=== PATIENT | male | born 1955 | race Caucasian/White ===

== ENCOUNTER → 2016-11-18 | Outpatient (CLI) | payer OTHER ==
--- NOTE | 2016-11-18 09:27 | XR ---
EXAMINATION TYPE: XR cervical spine comp DATE OF EXAM: 11/18/2016 9:21 AM TECHNIQUE: Frontal, lateral, oblique, and open mouth view of the cervical spine are obtained. HISTORY: Chronic neck pain, history of multiple prior surgeries COMPARISON: None FINDINGS: The cervical spine is visualized in its entirety from C1 thru the top of T1 level, there i s straightening of cervical spine without evidence of acute fracture or dislocation. The pre-vertebr al soft tissue appears within normal limits. The C1-C2 articulation is within normal limits on the o pen mouth view. There is anterior fusion plate with high dense disc spacers at C3-C5 level. There is metallic cage at C5-C6 level anteriorly. There is ossific fusion at C6-C7 level. There is moderate disc space narrowi ng at C7-T1 level. Alignment is satisfactory. The oblique images are within normal limits. Overlying soft tissue is unremarkable. IMPRESSION: Postsurgical changes from C3-C5 level and C5-C6 levels. Ossific fusion C6-C7 level is see n. Alignment is maintained.
== END | disposition home or self-care (01) ==
LOC: RADXRMAIN 09:03
PROVIDERS: ATTEND Pediatrics
DX: M54.2 Cervicalgia (principal); Z98.1 Arthrodesis status
CPT/HCPCS: 72050

== ENCOUNTER → 2016-12-24 | Outpatient (CLI) | payer OTHER ==
--- NOTE | 2016-12-24 16:29 | XR ---
EXAMINATION TYPE: XR shoulder complete RT DATE OF EXAM ORDERED: 12/24/2016 3:53 PM HISTORY: M25.511 R shoulder pain. COMPARISON: None. FINDINGS: No fracture, dislocation or other acute osseous lesion is seen. Note is made of mild hyper trophic changes in the right AC joint. IMPRESSION: 1. NO ACUTE OSSEOUS LESION. 2. MILD HYPERTROPHIC CHANGE, RIGHT AC JOINT.
== END | disposition home or self-care (01) ==
LOC: RADXRMAIN 15:36
PROVIDERS: ATTEND Pediatrics
DX: M89.311 Hypertrophy of bone, right shoulder (principal); M25.511 Pain in right shoulder

== ENCOUNTER → 2017-03-08 | Outpatient (CLI) | payer OTHER ==
--- NOTE | 2017-03-08 11:59 | XR ---
EXAMINATION TYPE: XR lumbar spine 2 or 3V DATE OF EXAM: 03/08/2017 10:42 AM COMPARISON: NONE HISTORY: Back pain TECHNIQUE: 3 view lumbar spine FINDINGS: There 5 lumbar-type vertebral bodies. The pedicles are intact. Vertebral body heights appea r preserved. Disc heights are preserved. IMPRESSION: 1. No acute changes lumbar spine. 2. Consider MRI for additional evaluation
== END | disposition home or self-care (01) ==
LOC: RADXRMAIN 10:17
PROVIDERS: ATTEND Pediatrics
DX: M54.9 Dorsalgia, unspecified (principal)
CPT/HCPCS: 72100

== ENCOUNTER → 2017-03-30 | Outpatient (CLI) | payer OTHER ==
--- NOTE | 2017-03-30 12:53 | CT ---
EXAMINATION TYPE: CT abdomen pelvis wo/w con DATE OF EXAM: 03/30/2017 COMPARISON: NONE HISTORY: Neoplasm of uncertain behavior CT DLP: 2433 mGycm, Automated Exposure Control for Dose Reduction was Utilized. CONTRAST: CT scan of the abdomen and pelvis is performed with oral and without and with IV Contrast, patient in jected with 100 ml mL of Omnipaque 300. FINDINGS: LUNG BASES: There is 2 mm calcified nodule left lung base on axial image 10 series 7. LIVER/GB: No significant abnormality is appreciated. PANCREAS: No significant abnormality is seen. SPLEEN: No significant abnormality is seen. ADRENALS: There is 2.1 x 1.1 cm left adrenal mass anterior limb, Hounsfield units average -[address], findings are consistent with lipid rich adenoma. KIDNEYS: No renal calculi are evident bilaterally. There is symmetric cortical medullary uptake and excretion from both kidneys. There is exophytic heterogeneous lobulated hypodense felt nonenhancing e xophytic mass from posterior aspect lower pole left kidney with Hounsfield units averaging between 10 and 20, measuring approximately 6.5 cm AP diameter on axial image 36 x 5.5 cm transversely by 8 cm c raniocaudal dimension on sagittal image 61. Cystic neoplasm is suspected. Lesion encroaches upon infe rior central renal fatty sinus, this is seen best on sagittal image 60 and coronal image 66. Suspect a few small parapelvic cyst centrally in left kidney. BOWEL: Diverticula in left and sigmoid colon are present. No CT evidence for acute diverticulitis. Or al contrast does not reach colonic level. There is no suspicious small or large bowel dilatation seen . PROSTATE/SEMINAL VESICLES: Some central zone calcifications are seen in normal size gland. LYMPH NODES: No greater than 1cm abdominal or pelvic lymph nodes are appreciated. OSSEOUS STRUCTURES: Bilateral pars defects L5 level. No significant spondylolisthesis. Mild disc spac e narrowing L5-S1 level is present. OTHER: No significant additional abnormality is seen. IMPRESSION: 1. Complex exophytic cystic lesion lower pole level left kidney in which cystic renal cell carcinoma is suspected. Surgical follow-up advised.
== END | disposition home or self-care (01) ==
LOC: RADCTMAIN 10:06
PROVIDERS: ATTEND Urology
DX: N28.1 Cyst of kidney, acquired (principal)
CPT/HCPCS: 74178; Q9967 ×2

== ENCOUNTER → 2017-05-25 | Outpatient (CLI) | payer OTHER ==
[2017-05-25 10:21] LABS: EKG EKG PERFORMED
--- NOTE | 2017-05-25 10:42 | XR ---
EXAMINATION TYPE: XR chest 2V DATE OF EXAM: 05/25/2017 COMPARISON: Correlation CT 03/30/2017 HISTORY: 62-year-old male malignant neoplasm of the left kidney, presurgical evaluation TECHNIQUE: Axial and lateral views FINDINGS: The cardiomediastinal silhouette, aorta, and pulmonary vasculature are within normal limits. Focal op acity along the cardiac apex corresponds to epicardial fat pad when correlating with prior CT. No con solidation or pleural effusion. IMPRESSION: No acute cardiopulmonary process.
[2017-05-25 10:56] LABS: Appearance,Urine Clear (Clear); Basophils % (A) 0 %; Bilirubin,Urine Negative (Negative); CH 31.3; CHCM 33.4; Eosinophils # (A) 0.1 k/uL (0-0.7); Eosinophils % (A) 1 %; Glucose,Urine (UA) Negative (Negative); HCT 55.3 % (39.0-53.0); HDW 2.43; HGB 18.5 gm/dL (13.0-17.5); Ketones,Urine Negative (Negative); Leukocyte Esterase,Urine Negative (Negative); Luc # (Auto) 0.21; Luc % (Auto) 3; Lymphocytes # (A) 2.1 k/uL (1.0-4.8); Lymphocytes % (A) 28 %; MCH 31.6 pg (25.0-35.0); MCHC 33.5 g/dL (31.0-37.0); MCV 94.2 fL (80.0-100.0); Monocytes # (A) 0.5 k/uL (0-1.0); Monocytes % (A) 7 %; Neutrophils # (A) 4.4 k/uL (1.3-7.7); Neutrophils % (A) 61 %; Nitrite,Urine Negative (Negative); Protein,Urine Negative (Negative); RBC 5.87 m/uL (4.30-5.90); RDW 13.5 % (11.5-15.5); Specific Gravity,Urine 1.013 (1.001-1.035); UA Billing (MACRO vs. MICRO) CHEM; Urobilinogen,Urine <2.0 mg/dL (<2.0); WBC 7.3 k/uL (3.8-10.6); WBC (Perox) 7.27
[2017-05-25 11:16] LABS: ALT 37 U/L (21-72); AST 25 U/L (17-59); Alkaline Phosphatase 94 U/L (38-126); Anion Gap 11 mmol/L; Blood Urea Nitrogen 18 mg/dL (9-20); Calcium 9.6 mg/dL (8.4-10.2); Carbon Dioxide 23 mmol/L (22-30); Chloride 106 mmol/L (98-107); Glucose 98 mg/dL (74-99); Non-African American GFR(MDRD) >60 (>60 ml/min/1.73 sqM); Potassium 4.9 mmol/L (3.5-5.1); Sodium 140 mmol/L (137-145); Total Bilirubin 0.8 mg/dL (0.2-1.3); Total Protein 7.3 g/dL (6.3-8.2)
== END | disposition home or self-care (01) ==
LOC: RADXRMAIN 09:47
PROVIDERS: ATTEND Urology
DX: Z01.818 Encounter for other preprocedural examination (principal); C64.2 Malignant neoplasm of left kidney, except renal pelvis; R53.83 Other fatigue; R06.02 Shortness of breath; R35.0 Frequency of micturition; Z01.810 Encounter for preprocedural cardiovascular examination
CPT/HCPCS: 36415; 71020; 80053; 81003; 85025; 93005

== ENCOUNTER 2017-06-01 05:46 | Inpatient (IN) | payer OTHER ==
[2017-05-25 08:38] VITALS: BMI 30.5
[~2017-06-01 05:46] MED LIST: Pre Op ABX Message 1 EACH MISC MISCELLANE ONE
[2017-06-01] MEDS: LACTATED RINGERS 1,000 ML IV SCH (06:53)
[2017-06-01] MEDS ORDERED: LIDOCAINE 1% 20 ML VIAL (10MG/ML) FOR IV START INTRADERMA ONE (06:54)
[2017-06-01] MEDS ORDERED: ROCURONIUM BROMIDE 10 MG/ML 10 ML VIAL IV ONE (07:41)
[2017-06-01] MEDS ORDERED: fentaNYL (PF) 50 MCG/ML 2 ML AMP ONE (07:41)
[2017-06-01] MEDS ORDERED: GLYCOPYRROLATE 0.2 MG/ML 2 ML VIAL ONE (07:41)
[2017-06-01] MEDS ORDERED: PROPOFOL 10 MG/ML 20 ML VIAL IV ONE (07:41)
[2017-06-01] MEDS ORDERED: LIDOCAINE 1% INJ 10MG/ML (20 ML MDV) ONE (07:41)
[2017-06-01] MEDS ORDERED: SUCCINYLCHOLINE CHLORIDE 100 MG/5 ML SYR IV ONE (07:41)
[2017-06-01] MEDS ORDERED: ePHEDrine SULFATE/0.9% NACL/PF 50 MG/5 ML SYRINGE IV ONE (07:41)
[2017-06-01] MEDS ORDERED: NEOSTIGMINE 1 MG/ML 10 ML VIAL ONE (07:41)
[2017-06-01] MEDS ORDERED: NALOXONE 0.4 MG/ML 1 ML VIAL IV PRN (08:06)
[2017-06-01] MEDS ORDERED: BUPIVACAINE (PF) 0.5% 50 ML, HYDROMORPHONE (PF) 5 MG in SODIUM CHLORIDE 0.9% 200 ML EPIDURAL PRN (08:06)
[2017-06-01] MEDS ORDERED: LACTATED RINGERS 1,000 ML IV ONE ×2 (08:36)
[2017-06-01] MEDS ORDERED: CYCLOBENZAPRINE 10 MG TAB PO PRN (10:09)
--- NOTE | 2017-06-01 10:16 | P.OP ---
Date of Procedure: 06/01/17 Preoperative Diagnosis: Class III left renal cyst possible cystic carcinoma of the kidney Postoperative Diagnosis: Same Procedure(s) Performed: Left radical nephrectomy Implants: Anesthesia: GETA, epidural Surgeon: Noah Galvan Tanker Driver #1: Osbaldo Priec Estimated Blood Loss (ml): 100 Pathology: other (Left kidney) Condition: stable Disposition: PACU Indications for Procedure: The patient is a 62-year-old gentleman with a very atypical invasive renal cysts , class III Bosniak rule out cystic carcinoma the patient was given alternatives of treatment options. He has chosen an open radical nephrectomy as the tumor is too deep to do a partial nephrectomy. He declined referral or robotic approach. Operative Findings: Description of Procedure: Patient is brought to the operating suite and given a general endotracheal anesthesia preceded by an epidural anesthetic on the operating table. He is prepped and draped sterilely. A Alvarez catheters introduced sterilely. A left subcostal incision is made. The rectus fascia and peritoneum was opened. The colon is retracted medially over the introitus fascia. Adequate retraction of the retroperitoneum is maintained. We identify the left renal hilum. We dissected around the left renal vein. The adrenal vein is taken between 2-0 silk ties. There are 3 branches of the lumbar vein that are taken individually between 3-0 silk ties. We identify 2 left renal arteries and they are tied with 2-0 silk ties. We then able to complete the transection the left renal vein using double ties proximally and distally with free tie and 2-0 silk suture ligatures. We then doubly tie and Hemoclip the renal arteries. The hilum is then transected. We dissect superiorly making sure to preserve the adrenal gland. We dissected inferior to the adrenal gland using hemoclips. When March inferiorly along the psoas muscle and the aorta. We take the gonadal vein between 2-0 silk ties. We clipped the ureter proximally and distally. We then dissected the kidney off the body wall. We transect the splenorenal labial ligaments with hemoclips. We deliver the kidney from the wound. We'll control any bleeding with electrocautery. There is some bleeding off the adrenal gland which is controlled with Surgicel. At the end of the procedure there is no active bleeding. The bowel was allowed to fill up the left upper quadrant. The omentum was placed over the bowel. The wound was closed with 3 layers with #1 Vicryl running. The skin is stapled. The patient awake and returned recovery in good condition. Blood loss is approximately 100 mL. He'll be placed in the hospital postoperatively.
[2017-06-01] MEDS: KETOROLAC 30 MG/ML 1 ML VIAL IVP PRN (10:43)
[2017-06-01] MEDS: DEXTROSE 5%-0.45% NACL 1,000 ML IV SCH ×2 (11:41→20:38)
[2017-06-01 15:11] LABS: Anion Gap 7 mmol/L; Blood Urea Nitrogen 23 mg/dL (9-20); Calcium 8.8 mg/dL (8.4-10.2); Carbon Dioxide 21 mmol/L (22-30); Chloride 109 mmol/L (98-107); Glucose 131 mg/dL (74-99); Non-African American GFR(MDRD) >60 (>60 ml/min/1.73 sqM); Sodium 137 mmol/L (137-145)
[2017-06-01] MEDS: diphenhydrAMINE 50 MG/ML 1 ML VIAL IVP PRN (15:56)
[2017-06-01] MEDS: NALBUPHINE 10 MG/ML AMPUL IV PRN ×2 (17:46→22:39)
[2017-06-02] MEDS: NALBUPHINE 10 MG/ML AMPUL IV PRN ×5 (03:16→21:32)
--- NOTE | 2017-06-02 06:44 | P.PN ---
Subjective The patient is in his first day postop left radical nephrectomy. He is pain free. His vital signs are stable. He is afebrile. He is complaining of itching due to the epidural. The dressing is dry. His abdomen is soft. His urine is clear. He will continue with IV fluids, clear liquid diet. He'll sit up today. We'll have anesthesia dresses itching. Objective - Vital Signs Vital signs: Vital Signs Temp 99.0 F 06/02/17 02:45 Pulse 79 06/02/17 02:45 Resp 17 06/02/17 02:45 BP 116/75 06/02/17 02:45 Pulse Ox 93 L 06/02/17 02:45 Intake & Output 06/01/17 06/01/17 06/02/17 06:59 18:59 06:59 Intake Total 300 1732 4464 Output Total 850 600 Balance 793 770 8533 Weight 102.058 kg Intake: IV 300 1732 2000 Dextrose 5%-0.45% NaCl 1, 250 2000 000 ml @ 125 mls/hr IV . [facility] Rx#:[id number] Intake, IV Titration 64 Amount Bupivacaine (Pf) 0.5% 50 64 ml Hydromorphone (Pf) 5 mg In Sodium Chloride 0.9 % 200 ml @ Per Protocol EPIDURAL .Q0M PRN Rx#: [id number] Oral 2400 Output: Urine 600 600 Uretheral (Alvarez) 300 Estimated Blood Loss 250 Other: Voiding Method Indwelling Catheter Indwelling Catheter - Labs CBC & Chem 7: 06/01/17 15:58 Labs: Abnormal Lab Results - Last 24 Hours (Table) 06/01/17 06/01/17 Range/Units 11:23 15:58 Potassium 6.0 H 5.6 H (3.5-5.1) mmol/L Chloride 109 H (98-107) mmol/L Carbon Dioxide 21 L (22-30) mmol/L BUN 23 H (9-20) mg/dL Glucose 131 H (74-99) mg/dL
[2017-06-02] MEDS ORDERED: NALOXONE 0.4 MG/ML 1 ML VIAL IV PRN (07:18)
--- NOTE | 2017-06-02 07:24 | P.PN ---
Progress Note - Text Day one status post left radical nephrectomy, consistent placed for postoperative analgesia patient currently on bupivacaine/Dilaudid continuous infusion at 8 mL per hour,VAS 0/10 , and stable, side okay, no motor deficit , severe itching which is not controlled with Benadryl or nubain . assessment and plan= patient had side effects from the Dilaudid for this reason ,I will change the infusion to bupivacaine/fentanyl ,will star at 8 ml / hour
[2017-06-02 07:37] LABS: Anion Gap 11 mmol/L; Blood Urea Nitrogen 17 mg/dL (9-20); Calcium 8.5 mg/dL (8.4-10.2); Carbon Dioxide 20 mmol/L (22-30); Chloride 106 mmol/L (98-107); Glucose 97 mg/dL (74-99); Non-African American GFR(MDRD) 52 (>60 ml/min/1.73 sqM); Sodium 137 mmol/L (137-145)
[2017-06-02] MEDS: LACTATED RINGERS 1,000 ML IV SCH (07:41)
[2017-06-02] MEDS: DEXTROSE 5%-0.45% NACL 1,000 ML IV SCH ×3 (07:41→16:31)
[2017-06-02 07:48] LABS: Potassium 4.7 mmol/L (3.5-5.1)
[2017-06-02] MEDS: BUPIVACAINE (PF) 0.5% 31.3 ML, fentaNYL (PF) 625 MCG in SODIUM CHLORIDE 0.9% 206 ML EPIDURAL PRN (08:16)
[2017-06-02] MEDS: diphenhydrAMINE 50 MG/ML 1 ML VIAL IVP PRN ×2 (10:08→15:32)
[2017-06-03] MEDS: DEXTROSE 5%-0.45% NACL 1,000 ML IV SCH ×3 (01:19→16:14)
[2017-06-03] MEDS: NALBUPHINE 10 MG/ML AMPUL IV PRN ×4 (01:20→22:13)
[2017-06-03] MEDS: LACTATED RINGERS 1,000 ML IV SCH (06:11)
--- NOTE | 2017-06-03 07:27 | P.PN ---
Subjective The patient is in his second postoperative day from a left radical nephrectomy. His vital signs are stable. He is afebrile. He is passing gas. His wound looks good. The urine is clear. His pain is controlled with epidural at a rate of 6. I will continue with epidural until tomorrow. It will be removed tomorrow and discharge plan later in the day if he does well without epidural. The catheter, on the morning. Pathology is pending. Advance diet to regular. This patient is stable. The plan is to probably discharge home tomorrow afternoon after the catheter and epidural have been removed. Pending pathologist a final recommendations for the mass in the kidney. Objective - Vital Signs Vital signs: Vital Signs Temp 99.0 F 06/03/17 02:06 Pulse 87 06/03/17 02:06 Resp 16 06/03/17 02:06 BP 131/80 06/03/17 02:06 Pulse Ox 90 L 06/03/17 02:06 Intake & Output 06/02/17 06/03/17 06/03/17 18:59 06:59 18:59 Intake Total 0249.878 8283 Output Total 1200 2215 Balance 80.933 -1060 Intake: IV 1000 Dextrose 5%-0.45% NaCl 1, 1000 000 ml @ 125 mls/hr IV . Q8H [facility] Rx#:[id number] Intake, IV Titration 40.933 905 Amount Bupivacaine (Pf) 0.5% 31. 40.933 3 ml fentaNYL (PF) 625 mcg In Sodium Chloride 0. 9% 206 ml @ Per Protocol EPIDURAL .Q0M PRN Rx#: [id number] Bupivacaine (Pf) 0.5% 50 30 ml Hydromorphone (Pf) 5 mg In Sodium Chloride 0.9 % 200 ml @ Per Protocol EPIDURAL .Q0M PRN Rx#: [id number] Dextrose 5%-0.45% NaCl 1, 875 000 ml @ 125 mls/hr IV . [facility] Rx#:[id number] Oral 240 250 Output: Urine 1200 2215 Other: Voiding Method Indwelling Catheter Indwelling Catheter - Labs CBC & Chem 7: 06/02/17 06:54 Labs: Abnormal Lab Results - Last 24 Hours (Table) 06/02/17 Range/Units 06:54 Carbon Dioxide 20 L (22-30) mmol/L Creatinine 1.38 H (0.66-1.25) mg/dL
--- NOTE | 2017-06-03 07:31 | P.PN ---
Progress Note - Text Date: 06/03/2017 Time: 708 The patient is status post, left radical nephrectomy, postoperative day number 2. The patient yesterday continued to have itching ,even after the epidural solution was changed. The epidural rate was decreased from 8 ML's to 6 mL's per hour. The itching did subside somewhat after that. Patient states his pain was slightly increased after the rate change, but tolerable. The patient has no complaints of nausea vomiting or headache. The patient does not complain of any lower extremity numbness or weakness. The epidural is running at[6] mL per hour. The epidural will be maintained and adjusted as needed.
[2017-06-03 09:50] LABS: Calcium 8.8 mg/dL (8.4-10.2); Potassium 4.8 mmol/L (3.5-5.1)
[2017-06-03] MEDS: BUPIVACAINE (PF) 0.5% 31.3 ML, fentaNYL (PF) 625 MCG in SODIUM CHLORIDE 0.9% 206 ML EPIDURAL PRN (13:11)
[2017-06-03] MEDS: KETOROLAC 30 MG/ML 1 ML VIAL IVP PRN (16:11)
[2017-06-04] MEDS: DEXTROSE 5%-0.45% NACL 1,000 ML IV SCH (07:38)
[2017-06-04] MEDS: LACTATED RINGERS 1,000 ML IV SCH (07:38)
--- NOTE | 2017-06-04 09:45 | P.PN ---
Progress Note - Text 0927 Anesthesia POD 3. Status Post left radical nephrectomy under general endotracheal anesthesia with an epidrual catheter placed at T8 for post surgical pain releif. VAS (0, 2) with Bupivicaine 0.0625 % and fentanyl 2.5 mcg / cc running at 6 cc / hr. Lower extremity strength (4/4). Minimal sedation. Site looks OK. Plan to have epidural catheter removed today dressed with a Band-Aid for 24 hours and institute alternative analgesia.
[2017-06-04 10:43] VITALS: BP 131/79; PULSE 70; RESP 16; TEMP 97.5
--- NOTE | 2017-06-04 11:35 | P.DS ---
Providers Date of admission: 06/01/17 05:46 Expected date of discharge: 06/04/17 Attending physician: Noah Galvan Primary care physician: [facility] Course: History of admission, the patient underwent an uncomplicated left radical nephrectomy. The postoperative course was unremarkable. He remained afebrile with stable vital signs. The epidural catheter was removed on the third postoperative day. At that time, he was ambulating and tolerating regular diet. He had had 2 bowel movements. He was feeling well and ready for discharge. Procedures: Left radical nephrectomy on 06/01/2017. Patient Condition at Discharge: Good Plan - Discharge Summary New Discharge Prescriptions: New Hydrocodone/Acetaminophen [[place] 5-325] 1 - 2 each PO Q4HR PRN #20 tab PRN Reason: Pain No Action Multivitamins, Thera [Multivitamin (formulary)] 1 tab PO DAILY Ibuprofen [Motrin] 800 mg PO TID PRN PRN Reason: Pain Cyclobenzaprine [Flexeril] 10 mg PO TID PRN PRN Reason: Pain Discharge Medication List Cyclobenzaprine [Flexeril] 10 mg PO TID PRN 05/25/17 [History] Ibuprofen [Motrin] 800 mg PO TID PRN 05/25/17 [History] Multivitamins, Thera [Multivitamin (formulary)] 1 tab PO DAILY 05/25/17 [History ] Hydrocodone/Acetaminophen [[place] 5-325] 1 - 2 each PO Q4HR PRN #20 tab 06/04/17 [Rx] Follow up Appointment(s)/Referral(s): Noah Galvan MD [STAFF PHYSICIAN] - 1 Week Activity/Diet/Wound Care/Special Instructions: Diet as tolerated. Okay to shower. No lifting, driving, or strenuous activity.
--- NOTE | 2017-06-07 15:11 | CDI ---
Documentation and location in medical record included: Op Note states Class III left renal cyst possible cystic carcinoma of the kidney. Presenting symptoms: Class III left renal cyst possible cystic carcinoma of the kidney. Patient history/risk factors: Pt chose to have an open radical nephrectomy as the tumor was too deep to do a partial nephrectomy. Treatment: Left radical nephrectomy The patients principal diagnosis has not been clearly identified and requires clarification. In your professional opinion, can you please clarify which diagnosis, after study, accounted for the patients presenting symptoms and was the reason chiefly responsible for the admission? Please document in your discharge summary in order to capture severity of illness and risk of mortality. Include clinical findings that support your diagnosis. If you have any questions about this query, please contact Karin Bernard Guest Room Attendant at [phone] between 8am and 5pm. FYI: Press F11 to launch patient chart. JOSE ANGEL
== END 2017-06-04 13:00 | disposition home or self-care (01) | DRG 658 ==
LOC: 2ORMAIN 05:46 → 3SUR 10:13
PROVIDERS: ADMIT Urology; ATTEND Urology
PROC: 0TT10ZZ Resection of Left Kidney, Open Approach (ICD-10-PCS; principal; 2017-06-01 07:30)
DX: C64.1 Malignant neoplasm of right kidney, except renal pelvis (principal); F17.200 Nicotine dependence, unspecified, uncomplicated; L29.9 Pruritus, unspecified; M19.90 Unspecified osteoarthritis, unspecified site; T40.2X5A Adverse effect of other opioids, initial encounter; Z88.8 Allergy status to other drugs, medicaments and biological substances; Z79.1 Long term (current) use of non-steroidal anti-inflammatories (NSAID); Z79.899 Other long term (current) drug therapy; Z98.52 Vasectomy status; Z98.1 Arthrodesis status; Z80.8 Family history of malignant neoplasm of other organs or systems; Z82.49 Family history of ischemic heart disease and other diseases of the circulatory system
CPT/HCPCS: 80048; 84132; 86850; 86900; 86901; 88305; 88307

== ENCOUNTER → 2018-01-06 | Outpatient (CLI) | payer OTHER ==
--- NOTE | 2018-01-06 10:40 | XR ---
EXAMINATION TYPE: XR chest 2V DATE OF EXAM: 01/06/2018 COMPARISON: 05/25/17 HISTORY: Shortness of breath TECHNIQUE: Frontal and lateral views of the chest are obtained. FINDINGS: Scattered senescent parenchymal changes noted. No evidence for infiltrate. No evidence for atelectasis. Heart size is stable. Mediastinal structures are stable and grossly unremarkable. No evidence for hilar prominence. Degenerative changes dorsal spine. IMPRESSION: 1. No evidence for acute pulmonary disease.
[2018-01-06 11:43] LABS: Calcium 9.9 mg/dL (8.4-10.2); Total Bilirubin 0.4 mg/dL (0.2-1.3); Total Protein 6.5 g/dL (6.3-8.2)
== END | disposition home or self-care (01) ==
LOC: RADXRMAIN 10:02
PROVIDERS: ATTEND Urology
DX: C64.9 Malignant neoplasm of unspecified kidney, except renal pelvis (principal)
CPT/HCPCS: 36415; 71046; 80053

== ENCOUNTER 2018-02-27 08:24 | Day surgery (SDC) | payer OTHER ==
[2018-02-22 15:11] VITALS: BMI 32.4
[~2018-02-27 08:24] MED LIST changes: +LACTATED RINGERS 1,000 ML IV SCH; +LIDOCAINE 1% 20 ML VIAL (10MG/ML) FOR IV START INTRADERMA PRN; -Pre Op ABX Message 1 EACH MISC MISCELLANE ONE
[2018-02-27 09:29] VITALS: TEMP 97.8
[2018-02-27] MEDS ORDERED: PROPOFOL 10 MG/ML 20 ML VIAL IV ONE (11:28)
[2018-02-27] MEDS ORDERED: LIDOCAINE 1% INJ 10MG/ML (20 ML MDV) ONE (11:28)
[2018-02-27] MEDS ORDERED: IV FLUID CONTINUATION 1,000 ML IV ONE (11:58)
--- NOTE | 2018-02-27 11:59 | P.PCN ---
Date of Procedure: 02/27/18 Procedure(s) Performed: Procedure: Colonoscopy. Preoperative diagnosis: Screening for neoplasia. Postoperative diagnosis: Sigmoid diverticulosis with no evidence of acute diverticulitis, strictures, polyps or cancer. Preparation: HalfLytely prep. Sedation: Was provided by anesthesia. Brief clinical history: The patient is a 62-year-old male who is scheduled for this evaluation for screening for neoplasia because of age and history of polyps as risk factors. The patient has no abdominal complaints, bleeding or anemia. His last colonoscopy was around 3 years ago. Procedure: With the patient on his left lateral decubitus position and after informed consent and adequate sedation, the perianal area was inspected and it did not show any fissures or fistulas. There were no masses felt on digital rectal examination. The Olympus CFQ 160L video colonoscope was then inserted in the rectum in the usual fashion and advanced to the cecum. There were no polyps or cancer seen. Multiple diverticular orifices were seen scattered in the sigmoid but I saw no evidence of acute diverticulitis or strictures. I retroflexed the endoscope in the rectum before the endoscope was withdrawn. The patient tolerated the procedure well. Plan: The patient was reassured. Discussed dietary measures. He will follow up with you as planned and I recommended repeat exam in 5 years.
[2018-02-27 12:00] VITALS: PULSE 89
[2018-02-27 12:17] VITALS: BP 107/75; RESP 18
== END 2018-02-27 12:42 | disposition home or self-care (01) ==
LOC: ORWHC2ENDO 08:24
DX: Z12.11 Encounter for screening for malignant neoplasm of colon (principal); K57.30 Diverticulosis of large intestine without perforation or abscess without bleeding; J44.9 Chronic obstructive pulmonary disease, unspecified; K21.9 Gastro-esophageal reflux disease without esophagitis; M19.90 Unspecified osteoarthritis, unspecified site; Z88.8 Allergy status to other drugs, medicaments and biological substances; Z91.030 Bee allergy status; F17.210 Nicotine dependence, cigarettes, uncomplicated; Z98.1 Arthrodesis status; Z79.1 Long term (current) use of non-steroidal anti-inflammatories (NSAID); Z79.899 Other long term (current) drug therapy; Z86.010 Personal history of colon polyps
CPT/HCPCS: 45378; J2001; J2704

== ENCOUNTER 2018-04-30 09:14 | Emergency (ER) | payer OTHER ==
[2018-04-30 09:21] VITALS: BP 136/89; PULSE 73; RESP 16; TEMP 98.1
[2018-04-30] MEDS ORDERED: diphenhydrAMINE 50 MG/ML 1 ML VIAL IM STA (09:33)
[2018-04-30] MEDS ORDERED: methylPREDNISolone SOD SUCCI 125 MG/2 ML VIAL IM ONE (09:33)
[2018-04-30] MEDS ORDERED: FAMOTIDINE 20 MG TAB PO STA (09:33)
--- NOTE | 2018-04-30 09:53 | ED ---
Skin/Abscess/FB HPI - General Chief complaint: Skin/Abscess/Foreign Body Stated complaint: Allergic Rection Time Seen by Provider: 04/30/18 09:24 Source: patient Mode of arrival: ambulatory Limitations: no limitations - History of Present Illness Initial comments: 62-year-old male patient presents to the emergency department today for evaluation of rash to his lower abdomen and groin. Patient states that this started approximately 3-4 days ago after his washed his clothing any new laundry detergent. Patient states that the area has been extremely itchy. Patient states the rash extends onto his buttocks. Patient states he has been applying calamine lotion without much relief. Patient states that he has had a lot of sweating recently with the higher temperatures. The patient denies any blistering or drainage. He denies any fever or chills. Patient denies any recent shortness breath, chest pain, abdominal pain, nausea, vomiting, diarrhea , constipation, back pain, numbness, tingling, dizziness, weakness, hematuria, dysuria, urinary urgency, urinary frequency, headache, visual changes, or any other complaints. - Related Data Home Medications Medication Instructions Recorded Confirmed Cyclobenzaprine [Flexeril] 10 mg PO TID PRN 05/25/17 04/30/18 Ibuprofen [Motrin] 800 mg PO TID PRN 05/25/17 04/30/18 Multivitamins, Thera [Multivitamin 1 tab PO DAILY 05/25/17 04/30/18 (formulary)] Previous Rx's Medication Instructions Recorded Famotidine [Pepcid] 20 mg PO DAILY #5 tablet 04/30/18 Terbinafine HCl [LamISIL] 1 applic TOPICAL BID #15 gm 04/30/18 Allergies Allergy/AdvReac Type Severity Reaction Status Date / Time bee venom protein (honey bee) Allergy Unknown Verified 04/30/18 09:21 varenicline [From Chantix] Allergy Swelling Verified 04/30/18 09:21 Review of Systems ROS Statement: Those systems with pertinent positive or pertinent negative responses have been documented in the HPI. ROS Other: All systems not noted in ROS Statement are negative. Past Medical History Past Medical History: COPD, GERD/Reflux, Osteoarthritis (OA) Additional Past Medical History / Comment(s): degenerative disks, diverticulitis History of Any Multi-Drug Resistant Organisms: None Reported Past Surgical History: Back Surgery Additional Past Surgical History / Comment(s): neck fusion x 3- titanium plate C3 C4 C5-cadaver bone and cage C5 and C6, vasectomy, left nephrectomy, COLONOSCOPY Past Anesthesia/Blood Transfusion Reactions: No Reported Reaction Additional Past Anesthesia/Blood Transfusion Reaction / Comment(s): limited neck movement to left and lifting head up, states has had a general anesthesia after neck surgery without any problems intubation or with the anesthesia Past Psychological History: No Psychological Hx Reported Smoking Status: Current every day smoker Past Alcohol Use History: None Reported Past Drug Use History: Marijuana - Past Family History Mother Family Medical History: Cancer General Exam Limitations: no limitations General appearance: alert, in no apparent distress, other (This is a well- developed, well-nourished adult male patient in no acute distress. Vital signs upon presentation are temperature 98.1, pulse 73, respirations 16, blood pressure 136/89, pulse ox 96% on room air.) Eye exam: Present: normal appearance, PERRL, EOMI. Absent: scleral icterus, conjunctival injection, periorbital swelling ENT exam: Present: normal exam, normal oropharynx, mucous membranes moist Respiratory exam: Present: normal lung sounds bilaterally. Absent: respiratory distress, wheezes, rales, rhonchi, stridor Cardiovascular Exam: Present: regular rate, normal rhythm, normal heart sounds. Absent: systolic murmur, diastolic murmur, rubs, gallop, clicks exam: Present: other (raised erythematous macules on lower abdomen extending into the bilateral groin and down to the buttocks. patient's are not vesicular and nonpetechial.) Neurological exam: Present: alert, oriented X3, CN II-XII intact Psychiatric exam: Present: normal affect, normal mood Skin exam: Present: warm, dry, intact, normal color, rash (as described on exam) Course Vital Signs 04/30/18 09:18 Temperature 98.1 F Pulse Rate 73 Respiratory 16 Rate Blood Pressure 136/89 O2 Sat by Pulse 96 Oximetry Medical Decision Making - Medical Decision Making 62-year-old male patient presented to the emergency department today for evaluation of rash to his lower abdomen and groin. Physical examination does reveal patchy erythematous rash to the right lower abdomen extending into the groin into the buttocks. Patient reports that the area is very itchy. Patient is afebrile, vital signs are stable. Patient does believe this is related to ALLERGIC reaction so did administer Benadryl, Solu-Medrol, and Pepcid. Patient will be given a prescription for Lamisil cream for tinea cruris. He is instructed to keep the area clean and dry eyes possible. He is instructed to apply the cream twice daily. He is instructed to follow-up with his primary care physician for recheck in 1-2 days. Return parameters discussed in detail. He verbalizes understanding and agreed with this plan. Disposition Clinical Impression: Jock itch, Rash Disposition: HOME SELF-CARE Condition: Good Instructions: Acute Rash (ED), Jock Itch (ED) Additional Instructions: Apply cream twice daily. Take medications as directed. Follow-up with your primary care physician for recheck in 1-2 days. Return here immediately for any new, worsening, or concerning symptoms. Prescriptions: Famotidine [Pepcid] 20 mg PO DAILY #5 tablet Terbinafine HCl [LamISIL] 1 applic TOPICAL BID #15 gm Is patient prescribed a controlled substance at d/c from ED?: No Referrals: Tayo Bergman MD [Primary Care Provider] - 1-2 days Time of Disposition: 09:56
== END 2018-04-30 10:40 | disposition home or self-care (01) ==
LOC: EC 09:14
DX: B35.6 Tinea cruris (principal); T78.49XA Other allergy, initial encounter; F17.200 Nicotine dependence, unspecified, uncomplicated; Z88.8 Allergy status to other drugs, medicaments and biological substances; Z91.018 Allergy to other foods
CPT/HCPCS: 99283; 96372 ×2; J1200; J2930

== ENCOUNTER → 2018-07-06 | Outpatient (CLI) | payer OTHER ==
[2018-07-06 11:55] LABS: Calcium 9.7 mg/dL (8.4-10.2); Potassium 5.1 mmol/L (3.5-5.1); Total Bilirubin 0.4 mg/dL (0.2-1.3); Total Protein 6.5 g/dL (6.3-8.2)
== END | disposition home or self-care (01) ==
LOC: LABWHC1 10:23
PROVIDERS: ATTEND Urology
DX: C64.2 Malignant neoplasm of left kidney, except renal pelvis (principal)
CPT/HCPCS: 36415; 80053

== ENCOUNTER → 2018-07-14 | Outpatient (CLI) | payer OTHER ==
--- NOTE | 2018-07-14 08:57 | CT ---
EXAMINATION TYPE: CT abdomen w con DATE OF EXAM: 07/14/2018 COMPARISON: 03/30/2017 HISTORY: malignant neoplasm LT kidney CT DLP: 1015.60 mGycm Automated exposure control for dose reduction was used. TECHNIQUE: Helical acquisition of images was performed from the lung bases through the top of iliac crest to include entire abdomen. CONTRAST: Performed with Oral Contrast and with IV Contrast, patient injected with 100 mL of Isovue 300. FINDINGS: LUNG BASES: Left basilar granuloma is redemonstrated. LIVER/GB: No significant abnormality is appreciated. PANCREAS: There is a 4 mm hypoattenuating lesion within the pancreatic head neck junction as seen on coronal series 7 image 36. This appears to be contiguous with the nondilated pancreatic duct and most likely represents a sidebranch IPMN, however further characterization with MRCP is recommended. SPLEEN: No significant abnormality is seen. ADRENALS: In the left suprarenal region there appears to be the [place] left adrenal gland. This has t hickened limbs, possibly relating to adrenal gland hyperplasia. Adenoma. KIDNEYS: The left kidney is surgically absent. Other than the [place] left adrenal gland no surroundin g residual soft tissue is seen within the suprarenal region or surgical bed of the left renal fossa. No retroperitoneal soft tissue implants are appreciated. No local adenopathy is noted. The previously seen left perirenal enlarged lymph node is no longer visualized. The right kidney is unremarkable BOWEL: No significant abnormality is seen. No dilated bowel. LYMPH NODES: No greater than 1 cm short axis lymph nodes are seen within the abdomen. OSSEOUS STRUCTURES: Again noted are bilateral pars interarticularis defects of L5-S1 with mild (grad e 1) anterolisthesis of L5 on S1. Multilevel mild degenerative changes are seen of the visualized tho racolumbar spine with no new suspicious osseous lesions. FREE AIR: No free air is visualized. OTHER: Mild atherosclerosis is seen of the abdominal aorta and its branches. Left gluteal intramuscul ar probable lipoma is incidentally noted. IMPRESSION: 1. STATUS POST LEFT NEPHRECTOMY. IN THE SUPRARENAL FOSSA THERE IS THE APPEARANCE OF THE [place] ADRENA L GLAND. IF THE ADRENAL GLAND WAS SURGICALLY REMOVED THIS WOULD REPRESENT SOFT TISSUE NODULARITY AND WOULD BE SUSPICIOUS FOR RESIDUAL DISEASE. 2. NO OTHER EVIDENCE OF INTRA-ABDOMINAL METASTASIS OR LOCAL ADENOPATHY.
== END | disposition home or self-care (01) ==
LOC: RADCTMAIN 06:03
PROVIDERS: ATTEND Urology
DX: Z08 Encounter for follow-up examination after completed treatment for malignant neoplasm (principal); Z90.5 Acquired absence of kidney; Z85.528 Personal history of other malignant neoplasm of kidney
CPT/HCPCS: 74160; Q9967

== ENCOUNTER 2018-10-08 12:24 | Emergency (ER) | payer OTHER ==
[2018-10-08] MEDS ORDERED: CEPHALEXIN 500MG STARTER PACK 4 CAP BTL PO STA (13:54)
[2018-10-08] MEDS ORDERED: SULFAMETH-TMP DS STARTER PACK 2 TAB BTL PO STA (13:54)
--- NOTE | 2018-10-08 13:55 | ED ---
Skin/Abscess/FB HPI - General Chief complaint: Skin/Abscess/Foreign Body Stated complaint: Abscess Time Seen by Provider: 10/08/18 13:15 Source: patient, RN notes reviewed, old records reviewed Mode of arrival: ambulatory Limitations: no limitations - History of Present Illness Initial comments: This is a 63 year old male, with CC of back abscess. Patient has had a cyst on the back for a few years, patient reports that over the past few days, he has had increased pain, and redness over area. Patient reports it hits his belt line. Patient has had this drained before. PAtient denies history of drug resistant skin infections. - Related Data Home Medications Medication Instructions Recorded Confirmed Cyclobenzaprine [Flexeril] 10 mg PO TID PRN 05/25/17 10/08/18 Ibuprofen [Motrin] 800 mg PO TID PRN 05/25/17 10/08/18 Multivitamins, Thera [Multivitamin 1 tab PO DAILY 05/25/17 10/08/18 (formulary)] Previous Rx's Medication Instructions Recorded Cephalexin [Keflex] 500 mg PO Q6HR #28 cap 10/08/18 Sulfamethox-Tmp 800-160Mg [Bactrim 1 tab PO Q12HR #14 tab 10/08/18 DS 800-160 mg] Allergies Allergy/AdvReac Type Severity Reaction Status Date / Time bee venom protein (honey bee) Allergy Unknown Verified 10/08/18 13:21 [email or web address] [From Chantix] Allergy Swelling Verified 10/08/18 13:21 Review of Systems ROS Statement: Those systems with pertinent positive or pertinent negative responses have been documented in the HPI. ROS Other: All systems not noted in ROS Statement are negative. Past Medical History Past Medical History: COPD, GERD/Reflux, Osteoarthritis (OA) Additional Past Medical History / Comment(s): degenerative disks, diverticulitis History of Any Multi-Drug Resistant Organisms: None Reported Past Surgical History: Back Surgery Additional Past Surgical History / Comment(s): neck fusion x 3- titanium plate C3 C4 C5-cadaver bone and cage C5 and C6, vasectomy, left nephrectomy, COLONOSCOPY Past Anesthesia/Blood Transfusion Reactions: No Reported Reaction Additional Past Anesthesia/Blood Transfusion Reaction / Comment(s): limited neck movement to left and lifting head up, states has had a general anesthesia after neck surgery without any problems intubation or with the anesthesia Past Psychological History: No Psychological Hx Reported Smoking Status: Current every day smoker Past Alcohol Use History: None Reported Past Drug Use History: Marijuana - Past Family History Mother Family Medical History: Cancer General Exam - General Exam Comments Initial Comments: This is a 63 male, no distress. Limitations: no limitations General appearance: alert, in no apparent distress Head exam: Present: atraumatic, normocephalic, normal inspection Eye exam: Present: normal appearance, PERRL, EOMI. Absent: scleral icterus, conjunctival injection, periorbital swelling ENT exam: Present: normal exam, mucous membranes moist Neck exam: Present: normal inspection. Absent: tenderness, meningismus, lymphadenopathy Respiratory exam: Present: normal lung sounds bilaterally. Absent: respiratory distress, wheezes, rales, rhonchi, stridor Cardiovascular Exam: Present: regular rate, normal rhythm, normal heart sounds. Absent: systolic murmur, diastolic murmur, rubs, gallop, clicks GI/Abdominal exam: Present: soft, normal bowel sounds. Absent: distended, tenderness, guarding, rebound, rigid Extremities exam: Present: normal inspection, full ROM, normal capillary refill. Absent: tenderness, pedal edema, joint swelling, calf tenderness Back exam: Present: normal inspection, other (3cm cyst over left lowerback at belt line. ) Neurological exam: Present: alert, oriented X3, CN II-XII intact Psychiatric exam: Present: normal affect, normal mood Skin exam: Present: warm, dry, intact, normal color. Absent: rash Course Vital Signs 10/08/18 10/08/18 10/08/18 12:47 14:56 14:59 Temperature 98.2 F 97 F L Pulse Rate 77 100 100 Respiratory 18 15 18 Rate Blood Pressure 145/103 135/98 135/98 O2 Sat by Pulse 98 99 98 Oximetry Procedures - Incision & Drainage Consent Obtained: verbal consent Indication: abscess Site: back Size (cm): 3 Anesthetic Used: lidocaine 1% Amount (mLs): 5 I&D Cleaning Method: Iodine Sterile Field Used?: Yes Scalpel Used: #11 I&D Drainage Obtained: Pus, Blood Packing: Iodoform Culture Obtained?: Yes Patient Tolerated Procedure: well - Laceration Laceration #1 Site: back Size (cm): 3 Medical Decision Making - Medical Decision Making Patient is a 63 year old male, with CC of back abscess. Patient area was ultrasounded, and there is a 3cm cyst with surrounding inflammation. Patient had incision and drainage, some purulent fluid was removed. Patient has been started on keflex and bactrim. Discussed follow up with dermatology for complete removal of cyst. Discussed return parameters. Disposition Clinical Impression: Back abscess Disposition: HOME SELF-CARE Condition: Good Instructions: Abscess Incision and Drainage (ED) Additional Instructions: Patient should remove packing in 24 hours. Take antibiotic as prescribed. Return to the emergency department if any alarming signs or symptoms occur. Prescriptions: Cephalexin [Keflex] 500 mg PO Q6HR #28 cap Sulfamethox-Tmp 800-160Mg [Bactrim DS 800-160 mg] 1 tab PO Q12HR #14 tab Is patient prescribed a controlled substance at d/c from ED?: No Referrals: Tayo Bergman MD [Primary Care Provider] - 1-2 days Slade Bucio MD [STAFF PHYSICIAN] - 1-2 days Time of Disposition: 14:41
[2018-10-08 14:57] VITALS: BP 135/98; PULSE 100
[2018-10-08 15:00] VITALS: RESP 18; TEMP 97
== END 2018-10-08 14:59 | disposition home or self-care (01) ==
LOC: EC 12:24
DX: L02.212 Cutaneous abscess of back [any part, except buttock and flank] (principal); F17.200 Nicotine dependence, unspecified, uncomplicated; Z91.030 Bee allergy status; Z88.8 Allergy status to other drugs, medicaments and biological substances; Z98.1 Arthrodesis status; Z90.5 Acquired absence of kidney
CPT/HCPCS: 10060; 99283

== ENCOUNTER → 2019-01-18 | Outpatient (CLI) | payer OTHER ==
--- NOTE | 2019-01-18 08:44 | XR ---
EXAMINATION TYPE: XR chest 2V DATE OF EXAM: 01/18/2019 COMPARISON: NONE TECHNIQUE: PA and lateral views submitted. HISTORY: Renal cancer FINDINGS: The lungs are clear and there is no pneumothorax, pleural effusion, or focal pneumonia. Postsurgica l change overlying the cervical spine spine. No overt failure. Hypertrophic change of the spine. IMPRESSION: 1. No acute process.
[2019-01-18 09:02] LABS: HCT 54.2 % (39.0-53.0); HGB 16.9 gm/dL (13.0-17.5); MCH 30.8 pg (25.0-35.0); MCHC 31.2 g/dL (31.0-37.0); MCV 98.8 fL (80.0-100.0); Mean Platelet Volume 6.6; Platelet Count 236 k/uL (150-450); RBC 5.49 m/uL (4.30-5.90); RDW 13.6 % (11.5-15.5); WBC 9.1 k/uL (3.8-10.6)
[2019-01-18 09:48] LABS: Albumin 4.4 g/dL (3.5-5.0); Calcium 9.7 mg/dL (8.4-10.2); Potassium 5.1 mmol/L (3.5-5.1); Total Bilirubin 0.7 mg/dL (0.2-1.3); Total Protein 6.9 g/dL (6.3-8.2)
== END | disposition home or self-care (01) ==
LOC: RADXRMAIN 08:16
PROVIDERS: ATTEND Urology
DX: C64.2 Malignant neoplasm of left kidney, except renal pelvis (principal)
CPT/HCPCS: 36415; 71046; 80053; 85027

== ENCOUNTER → 2020-03-20 | Outpatient (CLI) | payer OTHER ==
[2020-03-20 10:42] LABS: Basophils % (A) 1 %; Eosinophils # (A) 0.2 k/uL (0-0.7); Eosinophils % (A) 2 %; HCT 50.9 % (39.0-53.0); HGB 16.2 gm/dL (13.0-17.5); Lymphocytes # (A) 2.3 k/uL (1.0-4.8); Lymphocytes % (A) 31 %; MCHC 31.8 g/dL (31.0-37.0); MCV 97.3 fL (80.0-100.0); Mean Platelet Volume 7.3; Monocytes # (A) 0.4 k/uL (0-1.0); Monocytes % (A) 6 %; Neutrophils # (A) 4.2 k/uL (1.3-7.7); Neutrophils % (A) 58 %; Platelet Count 234 k/uL (150-450); RBC 5.23 m/uL (4.30-5.90); RDW 13.2 % (11.5-15.5); WBC 7.4 k/uL (3.8-10.6)
[2020-03-20 10:44] LABS: Albumin 4.3 g/dL (3.5-5.0); Calcium 9.4 mg/dL (8.4-10.2); Total Bilirubin 0.8 mg/dL (0.2-1.3); Total Protein 6.9 g/dL (6.3-8.2)
--- NOTE | 2020-03-20 12:05 | CT ---
EXAMINATION TYPE: CT abdomen pelvis wo con DATE OF EXAM: 03/20/2020 COMPARISON: 07/14/2018 HISTORY: follow up renal cancer CT DLP: 609.3 mGycm Automated exposure control for dose reduction was used. TECHNIQUE: Helical acquisition of images was performed from the lung bases through the pelvis. FINDINGS: LUNG BASES: No significant abnormality is appreciated. LIVER/GB: No significant abnormality is appreciated. PANCREAS: There is a 4 mm hypoattenuating lesion within the pancreatic head neck junction as seen on coronal series 7 image 36. This appears to be contiguous with the nondilated pancreatic duct and most likely represents a sidebranch IPMN, however further characterization with MRCP is recommended. SPLEEN: No significant abnormality is seen. ADRENALS: In the left suprarenal region there appears to be the [place] left adrenal gland. This has t hickened limbs, possibly relating to adrenal gland hyperplasia. Adenoma. KIDNEYS: The left kidney is surgically absent. Other than the [place] left adrenal gland no surroundin g residual soft tissue is seen within the suprarenal region or surgical bed of the left renal fossa. No retroperitoneal soft tissue implants are appreciated. No local adenopathy is noted. The previously seen left perirenal enlarged lymph node is no longer visualized. ADENOPATHY: None visualized. OSSEOUS STRUCTURES: Again noted are bilateral pars interarticularis defects of L5-S1 with mild (grad e 1) anterolisthesis of L5 on S1. Multilevel mild degenerative changes are seen of the visualized tho racolumbar spine with no new suspicious osseous lesions. BOWEL: There is bowel wall thickening and diverticular changes involving the sigmoid colon. Correlat e for mild diverticulitis.. OTHER: Mild atherosclerosis is seen of the abdominal aorta and its branches. Left gluteal intramuscul ar probable lipoma is incidentally noted. Prostate calcifications are noted. IMPRESSION: 1. STATUS POST LEFT NEPHRECTOMY. NO PATHOLOGIC ADENOPATHY OR RESIDUAL MASS. SOFT TISSUE FULLNESS IN T HE SUPRARENAL STABLE MOST LIKELY RELATED TO RESIDUAL ADRENAL GLAND CORRELATE WITH SURGICAL HISTORY CO NFIRMATION. 2. CORRELATE FOR MILD DIVERTICULITIS. CASE DISCUSSED WITH REFERRING PHYSICIAN. A [place] level critical message alert has been initiated for Noah Galvan MD via the [employer] Critical Results System on 03/20/2020 12:01 PM. This message alert has been sent to Noah Galvan MD via the preferences provided by the clinician for the receipt of Radiology Critical Findings. Mess age ID [id number].
== END | disposition home or self-care (01) ==
LOC: RADCTMAIN 09:25
PROVIDERS: ATTEND Urology
DX: C64.2 Malignant neoplasm of left kidney, except renal pelvis (principal); Z00.00 Encounter for general adult medical examination without abnormal findings; Z12.5 Encounter for screening for malignant neoplasm of prostate; Z13.220 Encounter for screening for lipoid disorders; Z88.8 Allergy status to other drugs, medicaments and biological substances
CPT/HCPCS: 80061; 80053; 85025; 74176; G0103

== ENCOUNTER 2020-12-11 16:09 | Emergency (ER) | payer MEDICARE, OTHER ==
[2020-12-11 16:21] VITALS: BP 164/96; PULSE 74; RESP 18; TEMP 98
[2020-12-11] MEDS ORDERED: HYDROcodone/APAP 10-325MG 1 EACH TAB PO ONE (16:37)
--- NOTE | 2020-12-11 16:45 | ED ---
Upper Extremity HPI - General Chief Complaint: Extremity Injury, Upper Stated Complaint: R Arm Injury Time Seen by Provider: 12/11/20 16:21 Source: patient Mode of arrival: ambulatory Limitations: physical limitation - History of Present Illness Initial Comments: 65-year-old male presenting today for chief complaint of right forearm pain patient states 1 hour prior to arrival A2 by a board fell on top of his right forearm. Patient states he is significant tenderness to this region. He denies elbow pain shoulder pain or wrist pain. Patient denies any other areas of injury or trauma. Patient denies falling. Patient denies a lacerations or abrasions over the area were contact was made remaining review of systems negative upon arrival patient appears well and nontoxic he is ambulatory he is holding his right forearm. - Related Data Home Medications Medication Instructions Recorded Confirmed Cyclobenzaprine [Flexeril] 10 mg PO TID PRN 05/25/17 10/08/18 Ibuprofen [Motrin] 800 mg PO TID PRN 05/25/17 10/08/18 Multivitamins, Thera [Multivitamin 1 tab PO DAILY 05/25/17 10/08/18 (formulary)] Previous Rx's Medication Instructions Recorded Cephalexin [Keflex] 500 mg PO Q6HR #28 cap 10/08/18 Sulfamethox-Tmp 800-160Mg [Bactrim 1 tab PO Q12HR #14 tab 10/08/18 DS 800-160 mg] Allergies Allergy/AdvReac Type Severity Reaction Status Date / Time bee venom protein (honey bee) Allergy Unknown Verified 12/11/20 16:21 [email or web address] [From Chantix] Allergy Swelling Verified 12/11/20 16:21 Review of Systems ROS Statement: Those systems with pertinent positive or pertinent negative responses have been documented in the HPI. ROS Other: All systems not noted in ROS Statement are negative. Past Medical History Past Medical History: COPD, GERD/Reflux, Osteoarthritis (OA) Additional Past Medical History / Comment(s): degenerative disks, diverticulitis History of Any Multi-Drug Resistant Organisms: None Reported Past Surgical History: Back Surgery Additional Past Surgical History / Comment(s): neck fusion x 3- titanium plate C3 C4 C5-cadaver bone and cage C5 and C6, vasectomy, left nephrectomy, COLONOSCOPY Past Anesthesia/Blood Transfusion Reactions: No Reported Reaction Additional Past Anesthesia/Blood Transfusion Reaction / Comment(s): limited neck movement to left and lifting head up, states has had a general anesthesia after neck surgery without any problems intubation or with the anesthesia Past Psychological History: No Psychological Hx Reported Past Alcohol Use History: None Reported Past Drug Use History: Marijuana - Past Family History Mother Family Medical History: Cancer General Exam - General Exam Comments Initial Comments: General: The patient is awake and alert, in no distress, and does not appear acutely ill. Eye: +3 mm pupils are equal, round and reactive to light, extra-ocular movements are intact. No nystagmus. There is normal conjunctiva bilaterally. No signs of icterus. Cardiovascular: There is a regular rate and rhythm. No murmur, rub or gallop is appreciated. Respiratory: Lungs are clear to auscultation, respirations are non-labored, breath sounds are equal. No wheezes, stridor, rales, or rhonchi. Gastrointestinal: Soft, non-distended, non-tender abdomen without masses or organomegaly noted. There is no rebound or guarding present. Musculoskeletal: Normal ROM, at elbow, wrist and shoulder b/l. Strength 5/5. Sensation intact proximal and distal to injury site. radial and DP pulses equal bilaterally 2+. Compartments soft and compressible. She is able to make the okay fingers crossed thumbs-up and oppose the small digit and thumb Neurological: A&O x 3. CN II-XII intact grossly, There are no obvious motor or sensory deficits. Coordination appears grossly intact. Speech is normal. Skin: Skin is warm and dry and no rashes or lesions are noted. Psychiatric: Cooperative, appropriate mood & affect, normal judgment. Limitations: physical limitation Course Vital Signs 12/11/20 16:17 Temperature 98 F Pulse Rate 74 Respiratory 18 Rate Blood Pressure 164/96 O2 Sat by Pulse 97 Oximetry Medical Decision Making - Medical Decision Making No external bruising. Compartments soft and compressible. Patient neurovascularly intact. Imaging negative for osseous process. Soft tissue injury noted on x-ray. Patient placed in sling for comfort. I discussed the back treatment and return parameters. Patient discharged appearing well Disposition Clinical Impression: Soft tissue injury, Right forearm pain Disposition: HOME SELF-CARE Condition: Good Instructions (If sedation given, give patient instructions): Contusion in Adults (ED), Hematoma (ED) Additional Instructions: Please use medication as discussed. Please follow-up with family doctor in the next 2 days. Please return to emergency room if the symptoms increase or worsen or for any other concerns-if pain is worsening/skin feels very tight-recommend coming back in for re-evaluation. Is patient prescribed a controlled substance at d/c from ED?: No Referrals: Tayo Bergman MD [Primary Care Provider] - 1-2 days Time of Disposition: 17:03
--- NOTE | 2020-12-11 16:55 | XR ---
EXAMINATION TYPE: XR forearm RT DATE OF EXAM: 12/11/2020 COMPARISON: NONE HISTORY: 65-year-old male board fell on arm, injury and pain. TECHNIQUE: 2 views FINDINGS: Corticated bone fragment at the medial upper condyle suggesting sequela of chronic flexor tendinopath y. There is focal dorsal sided soft tissue swelling. No underlying acute fracture seen. Elbow and wri st articulations appear grossly intact. IMPRESSION: Focal soft tissue swelling/contusion along the dorsum of the forearm. No underlying acute osseous abn ormality seen.
[2020-12-11] MEDS: ACET/COD 300 MG/30 MG STARTER PACK 6 TAB BTL PO STA (17:16)
== END 2020-12-11 17:22 | disposition home or self-care (01) ==
LOC: EC 16:09
DX: M79.89 Other specified soft tissue disorders (principal); M79.631 Pain in right forearm; J44.9 Chronic obstructive pulmonary disease, unspecified; K21.9 Gastro-esophageal reflux disease without esophagitis; F12.90 Cannabis use, unspecified, uncomplicated; M19.90 Unspecified osteoarthritis, unspecified site; Z79.1 Long term (current) use of non-steroidal anti-inflammatories (NSAID)
CPT/HCPCS: 99283

== ENCOUNTER → 2020-12-18 | Outpatient (CLI) | payer MEDICARE ==
--- NOTE | 2020-12-18 12:29 | XR ---
EXAMINATION TYPE: XR forearm RT DATE OF EXAM: 12/18/2020 COMPARISON: NONE HISTORY: Pain Two views of the forearm demonstrate that the osseous structures appear to be intact and the joint sp aces appear to be preserved. There is no acute fracture or dislocation. Hypertrophic spur along the medial epicondyles and olecranon. IMPRESSION: 1. No acute fracture or dislocation
--- NOTE | 2020-12-18 12:41 | XR ---
EXAMINATION TYPE: XR shoulder complete RT DATE OF EXAM: 12/18/2020 COMPARISON: NONE HISTORY: Pain TECHNIQUE: Three views are submitted. FINDINGS: The osseous structures are intact. There is no acute fracture or dislocation. Mild hypertrophic mixon ge of the AC joint. Calcification along the rotator cuff suggestive of calcific tendinosis. IMPRESSION: 1. AC joint arthropathy correlate for chronic rotator cuff disease.
--- NOTE | 2020-12-18 12:44 | XR ---
EXAMINATION TYPE: XR elbow limited RT DATE OF EXAM: 12/18/2020 COMPARISON: NONE HISTORY: Pain FINDINGS: Two views of the elbow demonstrate no pathologic joint effusion. The osseous structures are intact. There is no acute fracture or dislocation. Hypertrophic spurs are seen involving the epicondyles an d olecranon. IMPRESSION: 1. No acute fracture or dislocation. If symptoms persist follow-up study in 7 to 10 days could be ob tained. 2. Hypertrophic spurring.
== END ==
LOC: RADXRMAIN 11:42
PROVIDERS: ATTEND Pediatrics
DX: M19.011 Primary osteoarthritis, right shoulder (principal); M75.101 Unspecified rotator cuff tear or rupture of right shoulder, not specified as traumatic; M77.8 Other enthesopathies, not elsewhere classified; M79.631 Pain in right forearm

== ENCOUNTER → 2021-01-26 | Outpatient (CLI) | payer MEDICARE | END | disposition home or self-care (01) | LOC: LABWHC1 09:35 | PROVIDERS: ATTEND Pediatrics | DX: U07.1 COVID-19 (principal) | CPT/HCPCS: U0003; C9803; U0005 ==

== ENCOUNTER → 2021-06-01 | Outpatient (CLI) | payer MEDICARE ==
--- NOTE | 2021-06-02 07:30 | XR ---
EXAMINATION TYPE: XR chest 2V DATE OF EXAM: 06/01/2021 COMPARISON: 01/18/2019 TECHNIQUE: PA and lateral views submitted. HISTORY: COPD FINDINGS: The lungs are clear and there is no pneumothorax, pleural effusion, or focal pneumonia. Hyperinflat ion compatible COPD. Heart size normal. No overt failure. Hypertrophic and degenerative changes of th e spine. IMPRESSION: 1. No acute process.
--- NOTE | 2021-06-02 10:54 | CT ---
EXAMINATION TYPE: CT abdomen pelvis wo con DATE OF EXAM: 06/02/2021 COMPARISON: 03/20/2020 HISTORY: LEFT RENALECTOMY X5 YEARS AGO CT DLP: 758.3 mGycm Examination of the solid and hollow viscera is limited given the lack of contrast. FINDINGS: LUNG BASES: No evidence for nodule. No evidence for infiltrate. LIVER/GB: The gallbladder is unremarkable. No space-occupying hepatic lesion. PANCREAS: No pancreatic mass identified. No inflammatory process seen. SPLEEN: No evidence for splenomegaly. No intrasplenic lesions seen. ADRENALS: No adrenal nodules identified. No evidence for thickening. KIDNEYS: Left-sided nephrectomy change without evidence for recurrent or residual mass. No evidence f or renal mass. No nephrolithiasis. No hydronephrosis. BOWEL: Appendix has a normal appearance. No evidence of bowel obstruction. No inflammatory process. Lymph nodes: No evidence for adenopathy greater than 1 cm. Abdominal aorta: Atheromatous changes seen. No evidence for aneurysm. Genital organs: No significant abnormality. Other: No significant abnormality. IMPRESSION: NO EVIDENCE FOR RECURRENT OR RESIDUAL DISEASE. NO EVIDENCE FOR METASTATIC DISEASE.
== END | disposition home or self-care (01) ==
LOC: RADCTMAIN 17:06
PROVIDERS: ATTEND Urology
DX: C64.9 Malignant neoplasm of unspecified kidney, except renal pelvis (principal)
CPT/HCPCS: 71046; 74176